=== PATIENT | female | born 1935 | race Caucasian/White ===

== ENCOUNTER → 2017-02-01 | Outpatient (CLI) | payer MEDICARE, OTHER ==
[~2017-02-01] VITALS: Ht 152.4 cm; Wt 60.3 kg
[~2017-02-01] MED LIST: ASPI32ECTA PO; ATOR1TAB18 PO; ISOS30TA4 PO; LEVO75TA4 PO; LISI-538 PO; LR 1,000 ML IV SCH; METF750T PO; METO-207 PO; PARO20TA3 PO; PROPOFOL 200 MG/20 ML VIAL As Ordered ONE; XIID5DRO OU
--- NOTE | 2017-02-01 11:01 | ROOR ---
Patient Name: Chari Rodriguez Procedure Date: 02/01/2017 10:25 AM Date of : 1935 Age: 81 Room: [facility] Gender: Female Note Status: Finalized Procedure: Colonoscopy Indications: High risk colon cancer surveillance: Personal history of colon cancer, Last colonoscopy: July 2011 Providers: Damir Linn MD Referring MD: HEIDI GARZA JR, MD Requesting Provider: Medicines: Monitored Anesthesia Care Complications: No immediate complications. Procedure: Pre-Anesthesia Assessment: - Prior to the procedure, a History and Physical was performed, and patient medications and allergies were reviewed. The patient is competent. The risks and benefits of the procedure and the sedation options and risks were discussed with the patient. All questions were answered and informed consent was obtained. Patient identification and proposed procedure were verified by the physician, the nurse and the anesthesiologist in the procedure room. Mental Status Examination: alert and oriented. Airway Examination: normal oropharyngeal airway and neck mobility. CV Examination: regular rate and rhythm. Prophylactic Antibiotics: The patient does not require prophylactic antibiotics. Prior Anticoagulants: The patient has taken no previous anticoagulant or antiplatelet agents. ASA Grade Assessment: III - A patient with severe systemic disease. After reviewing the risks and benefits, the patient was deemed in satisfactory condition to undergo the procedure. The anesthesia plan was to use monitored anesthesia care (MAC). Immediately prior to administration of medications, the patient was re-assessed for adequacy to receive sedatives. The heart rate, respiratory rate, oxygen saturations, blood pressure, adequacy of pulmonary ventilation, and response to care were monitored throughout the procedure. The physical status of the patient was re-assessed after the procedure. The Colonoscope [id number] #[id number] was introduced through the anus and advanced to the cecum, identified by appendiceal orifice and ileocecal valve. The colonoscopy was performed without difficulty. The patient tolerated the procedure well. The quality of the bowel preparation was excellent. Findings: The perianal and digital rectal examinations were normal. A 7 mm polyp was found in the hepatic flexure. The polyp was sessile. Biopsies were taken with a cold forceps for histology. There was evidence of a prior end-to-end colo-colonic anastomosis in the sigmoid colon. This was patent and was characterized by healthy appearing mucosa and several melvin in the colonic wall. Impression: - One 7 mm polyp at the hepatic flexure. Biopsied. - Patent end-to-end colo-colonic anastomosis, characterized by healthy appearing mucosa and an intact staple line. Recommendation: - Discharge patient to home. - Resume previous diet. - Continue present medications. - Await pathology results. - Telephone endoscopist for pathology results in 10 days. Damir Linn MD 02/01/2017 11:01:28 AM Number of Addenda: 0 Note Initiated On: 02/01/2017 10:25 AM Estimated Blood Loss: Estimated blood loss was minimal.
[2017-02-01 11:15] VITALS: BP 157/72
== END ==
LOC: M OPP 08:46
PROVIDERS: ATTEND Surgery
DX: Z12.11 Encounter for screening for malignant neoplasm of colon (principal); Z85.038 Personal history of other malignant neoplasm of large intestine; D12.3 Benign neoplasm of transverse colon; Z98.0 Intestinal bypass and anastomosis status; I10 Essential (primary) hypertension; E78.00 Pure hypercholesterolemia, unspecified; E11.9 Type 2 diabetes mellitus without complications; E03.9 Hypothyroidism, unspecified; Z79.899 Other long term (current) drug therapy; Z79.82 Long term (current) use of aspirin; Z79.84 Long term (current) use of oral hypoglycemic drugs

== ENCOUNTER 2019-05-10 07:43 | Day surgery (SDC) | payer MEDICARE, OTHER ==
[~2019-05-10] VITALS: Ht 152.4 cm; Wt 62.1 kg
[~2019-05-10 07:43] MED LIST changes: +ASPI-255 PO; -ASPI32ECTA PO; -ATOR1TAB18 PO; +ATOR80TA59 PO; +LIDOCAINE 2% INJ 100 MG/5 ML SDV (FOR ANES.) As Ordered ONE; -LR 1,000 ML IV SCH; -METF750T PO; +METF750T36 PO; -METO-207 PO; +METO1TAB7 PO; +NS 1,000 ML IV ONE
[2019-05-10] MEDS ORDERED: ePHEDrine SULFATE 25 MG/5 ML(5MG/ML) SYRINGE As Ordered ONE (08:44)
--- NOTE | 2019-05-10 09:24 | ROOR ---
Patient Name: Chari Rodriguez Procedure Date: 05/10/2019 8:33 AM Date of : 1935 Age: 83 Room: [facility] Gender: Female Note Status: Finalized Procedure: Colonoscopy Indications: High risk colon cancer surveillance: Personal history of colon cancer - Patient had a partial left colectomy for cancer in approx. 1997, Last colonoscopy: January 2017 Providers: Damir Linn MD Referring MD: HEIDI GARZA JR, MD Requesting Provider: Medicines: Monitored Anesthesia Care Complications: No immediate complications. Procedure: Pre-Anesthesia Assessment: - Prior to the procedure, a History and Physical was performed, and patient medications and allergies were reviewed. The patient is competent. The risks and benefits of the procedure and the sedation options and risks were discussed with the patient. All questions were answered and informed consent was obtained. Patient identification and proposed procedure were verified by the physician, the nurse and the anesthesiologist in the procedure room. Mental Status Examination: alert and oriented. CV Examination: regular rate and rhythm. Prophylactic Antibiotics: The patient does not require prophylactic antibiotics. Prior Anticoagulants: The patient has taken no previous anticoagulant or antiplatelet agents. ASA Grade Assessment: II - A patient with mild systemic disease. After reviewing the risks and benefits, the patient was deemed in satisfactory condition to undergo the procedure. The anesthesia plan was to use monitored anesthesia care (MAC). Immediately prior to administration of medications, the patient was re-assessed for adequacy to receive sedatives. The heart rate, respiratory rate, oxygen saturations, blood pressure, adequacy of pulmonary ventilation, and response to care were monitored throughout the procedure. The physical status of the patient was re-assessed after the procedure. The was introduced through the anus and advanced to the cecum, identified by appendiceal orifice and ileocecal valve. The colonoscopy was performed without difficulty. The patient tolerated the procedure well. The quality of the bowel preparation was excellent. Findings: The perianal and digital rectal examinations were normal. A 10 mm polyp was found in the cecum. The polyp was flat. The polyp was removed with a piecemeal technique using a hot snare. Resection and retrieval were complete. Small portions of the polyp which could not be engaged with the snare were destroyed with a hot biopsy forceps Two sessile polyps were found from 50 to 60 cm proximal to the anus. The polyps were 4 to 7 mm in size. These polyps were removed with a hot snare. Resection and retrieval were complete. A 2 mm polyp was found at 50 cm proximal to the anus. The polyp was sessile. Fulguration to ablate the lesion by snare was successful. A definite site of anstomosis was not identified. Impression: - One 10 mm polyp in the cecum, removed piecemeal using a hot snare. Resected and retrieved. - Two 4 to 7 mm polyps from 50 to 60 cm proximal to the anus, removed with a hot snare. Resected and retrieved. - One 2 mm polyp at 50 cm proximal to the anus. Treated with a hot snare. Recommendation: - Discharge patient to home. - Resume previous diet. - Continue present medications. - Await pathology results. - Repeat colonoscopy in 3 years for surveillance. Damir Linn MD Damir Linn MD 05/10/2019 9:24:21 AM Electronically signed by Damir Linn MD Number of Addenda: 0 Note Initiated On: 05/10/2019 8:33 AM Estimated Blood Loss: Estimated blood loss: none.
[2019-05-10 09:35] VITALS: BP 194/80
== END 2019-05-10 10:30 | disposition home or self-care (01) ==
LOC: M OPP 07:43
PROVIDERS: ATTEND Surgery
DX: Z12.11 Encounter for screening for malignant neoplasm of colon (principal); Z85.038 Personal history of other malignant neoplasm of large intestine; D12.0 Benign neoplasm of cecum; D12.5 Benign neoplasm of sigmoid colon; E11.9 Type 2 diabetes mellitus without complications; Z79.82 Long term (current) use of aspirin; Z79.84 Long term (current) use of oral hypoglycemic drugs; Z79.899 Other long term (current) drug therapy

== ENCOUNTER → 2020-02-04 | Outpatient (REF) | payer MEDICARE, OTHER ==
[~2020-02-04] MED LIST changes: -LIDOCAINE 2% INJ 100 MG/5 ML SDV (FOR ANES.) As Ordered ONE; -NS 1,000 ML IV ONE; -PROPOFOL 200 MG/20 ML VIAL As Ordered ONE
== END ==
LOC: M LAB REF 16:34
PROVIDERS: ATTEND Internal Medicine
DX: R41.3 Other amnesia (principal)

== ENCOUNTER → 2021-08-27 | Outpatient (REF) | payer MEDICARE, OTHER ==
[~2021-08-27] MED LIST changes: +ISOS1TAB35 PO; -ISOS30TA4 PO; -LISI-538 PO; +LISI20TA33 PO
[2021-08-28 09:43] LABS: FOLATE 10.8 NG/ML
== END ==
LOC: M LAB REF 16:15
PROVIDERS: ATTEND Internal Medicine
DX: R41.3 Other amnesia (principal)

== ENCOUNTER → 2021-12-14 | Outpatient (REF) | payer MEDICARE, OTHER | LOC: M LAB REF 16:17 | PROVIDERS: ATTEND Internal Medicine | DX: N39.0 Urinary tract infection, site not specified (principal); M25.519 Pain in unspecified shoulder ==

== ENCOUNTER → 2022-05-03 | Outpatient (CLI) | payer MEDICARE, OTHER | LOC: M WUC 13:53 | PROVIDERS: ATTEND Physician Assistant | DX: S62.646A Nondisplaced fracture of proximal phalanx of right little finger, initial encounter for closed fracture (principal); X58.XXXA Exposure to other specified factors, initial encounter ==

== ENCOUNTER → 2022-09-07 | Outpatient (REF) | payer MEDICARE, BC, OTHER ==
[2022-09-07 19:01] LABS: FOLATE 10.8 NG/ML (>5.4)
== END ==
LOC: M LAB REF 16:31
PROVIDERS: ATTEND Internal Medicine
DX: R41.3 Other amnesia (principal)

== ENCOUNTER → 2023-08-12 | Outpatient (CLI) | payer MEDICARE, BC | LOC: M RAD 13:43 | PROVIDERS: ATTEND Internal Medicine | DX: D37.6 Neoplasm of uncertain behavior of liver, gallbladder and bile ducts (principal); N28.1 Cyst of kidney, acquired ==

== ENCOUNTER → 2023-08-29 | Outpatient (CLI) | payer MEDICARE, BC | LOC: M RAD 09:24 | PROVIDERS: ATTEND Internal Medicine | DX: K76.9 Liver disease, unspecified (principal); N28.1 Cyst of kidney, acquired ==